=== PATIENT | female | born 1995 | race American Indian/Alaskan Native ===

== ENCOUNTER 2020-12-07 09:38 | Emergency (ER) | payer MEDICAID ==
[2020-12-07 10:34] VITALS: BP 126/69
--- NOTE | 2020-12-07 10:34 | Emergency Department Report ---
ED HPI - General Chief complaint: Vaginal Bleeding Stated complaint: /BLEEDING Time Seen by Provider: 12/07/20 10:32 Source: patient Mode of arrival: Ambulatory Limitations: No Limitations - History of Present Illness Initial comments: 25-year-old -[place] female patient presents with complaints of abdominal pain and vaginal spotting starting today. Patient states she had a positive test on Thursday. Her last menstrual cycle was 10/29/2020. She is G3, . No dysuria/hematuria, urinary frequency, vaginal dis charge/dyspareunia, or fever/chills/sweats per patient. She also denies any changes in her stools. Patient denies any other past medical history. He rates her current pain as a 7/10 in severity and describes it as cramping. - Related Data Allergies Allergy/AdvReac Type Severity Reaction Status Date / Time No Known Allergies Allergy Unverified 12/07/20 10:32 ED Review of Systems ROS: Stated complaint: /BLEEDING Other details as noted in HPI ED Past Medical Hx - Past Medical History Previous Medical History?: No - Surgical History Past Surgical History?: No - Social History Smoking Status: Current Every Day Smoker Substance Use Type: Alcohol ED Physical Exam - General Limitations: No Limitations ED Course Vital Signs 12/07/20 10:27 Temperature 99.1 F Pulse Rate 83 Respiratory 18 Rate Blood Pressure 126/69 O2 Sat by Pulse 100 Oximetry ED Medical Decision Making - Lab Data Result diagrams: 12/07/20 11:00 12/07/20 11:00 Lab Results 12/07/20 12/07/20 12/07/20 Range/Units 11:00 11:00 11:00 WBC 9.3 (4.5-11.0) K/mm3 RBC 4.41 (3.65-5.03) M/mm3 Hgb 13.8 (10.1-14.3) gm/dl Hct 40.8 (30.3-42.9) % MCV 93 (79-97) fl MCH 31 (28-32) pg MCHC 34 (30-34) % RDW 14.3 (13.2-15.2) % Plt Count 188 (140-440) K/mm3 Lymph % (Auto) 30.4 (13.4-35.0) % [place] % (Auto) 6.4 (0.0-7.3) % Eos % (Auto) 1.0 (0.0-4.3) % Baso % (Auto) 1.1 (0.0-1.8) % Lymph # (Auto) 2.8 (1.2-5.4) K/mm3 [place] # (Auto) 0.6 (0.0-0.8) K/mm3 Eos # (Auto) 0.1 (0.0-0.4) K/mm3 Baso # (Auto) 0.1 (0.0-0.1) K/mm3 Seg Neutrophils % 61.1 (40.0-70.0) % Seg Neutrophils # 5.7 (1.8-7.7) K/mm3 Sodium 140 (137-145) mmol/L Potassium 4.6 (3.6-5.0) mmol/L Chloride 104.6 (98-107) mmol/L Carbon Dioxide 24 (22-30) mmol/L Anion Gap 16 mmol/L BUN 7 (7-17) mg/dL Creatinine 0.5 L (0.6-1.2) mg/dL Estimated GFR > 60 ml/min BUN/Creatinine Ratio 14 % Glucose 84 (65-100) mg/dL Calcium 9.6 (8.4-10.2) mg/dL Total Bilirubin 0.50 (0.1-1.2) mg/dL AST 15 (5-40) units/L ALT 12 (7-56) units/L Alkaline Phosphatase 50 (35-129) units/L Total Protein 7.2 (6.3-8.2) g/dL Albumin 4.7 (3.9-5) g/dL Albumin/Globulin Ratio 1.9 % HCG, Quant 99.74 H (0-4) mIU/mL Urine Color (Yellow) Urine Turbidity (Clear) Urine pH (5.0-7.0) Ur Specific [place] (1.003-1.030) Urine Protein (Negative) mg/dL Urine Glucose (UA) (Negative) mg/dL Urine Ketones (Negative) mg/dL Urine Blood (Negative) Urine Nitrite (Negative) Urine Bilirubin (Negative) Urine Urobilinogen (<2.0) mg/dL Ur Leukocyte Esterase (Negative) Urine WBC (Auto) (0.0-6.0) /HPF Urine RBC (Auto) (0.0-6.0) /HPF U Epithel Cells (Auto) (0-13.0) /HPF Blood Type 12/07/20 12/07/20 Range/Units Unknown Unknown WBC (4.5-11.0) K/mm3 RBC (3.65-5.03) M/mm3 Hgb (10.1-14.3) gm/dl Hct (30.3-42.9) % MCV (79-97) fl MCH (28-32) pg MCHC (30-34) % RDW (13.2-15.2) % Plt Count (140-440) K/mm3 Lymph % (Auto) (13.4-35.0) % [place] % (Auto) (0.0-7.3) % Eos % (Auto) (0.0-4.3) % Baso % (Auto) (0.0-1.8) % Lymph # (Auto) (1.2-5.4) K/mm3 [place] # (Auto) (0.0-0.8) K/mm3 Eos # (Auto) (0.0-0.4) K/mm3 Baso # (Auto) (0.0-0.1) K/mm3 Seg Neutrophils % (40.0-70.0) % Seg Neutrophils # (1.8-7.7) K/mm3 Sodium (137-145) mmol/L Potassium (3.6-5.0) mmol/L Chloride (98-107) mmol/L Carbon Dioxide (22-30) mmol/L Anion Gap mmol/L BUN (7-17) mg/dL Creatinine (0.6-1.2) mg/dL Estimated GFR ml/min BUN/Creatinine Ratio % Glucose (65-100) mg/dL Calcium (8.4-10.2) mg/dL Total Bilirubin (0.1-1.2) mg/dL AST (5-40) units/L ALT (7-56) units/L Alkaline Phosphatase (35-129) units/L Total Protein (6.3-8.2) g/dL Albumin (3.9-5) g/dL Albumin/Globulin Ratio % HCG, Quant (0-4) mIU/mL Urine Color Yellow (Yellow) Urine Turbidity Clear (Clear) Urine pH 6.0 (5.0-7.0) Ur Specific [place] 1.011 (1.003-1.030) Urine Protein <15 mg/dl (Negative) mg/dL Urine Glucose (UA) Neg (Negative) mg/dL Urine Ketones Neg (Negative) mg/dL Urine Blood Neg (Negative) Urine Nitrite Neg (Negative) Urine Bilirubin Neg (Negative) Urine Urobilinogen < 2.0 (<2.0) mg/dL Ur Leukocyte Esterase Neg (Negative) Urine WBC (Auto) < 1.0 (0.0-6.0) /HPF Urine RBC (Auto) < 1.0 (0.0-6.0) /HPF U Epithel Cells (Auto) 2.0 (0-13.0) /HPF Blood Type AB POSITIVE - Radiology Data Radiology results: report reviewed FINDINGS: Uterus: Present. Size: 7.3 x 5.9 x 5.1 cm. Endometrial complex: Mildly prominent measuring 8 cm. No intrauterine . Mass lesions: None. Additional findings: None. Right Ovary -- Normal. Blood flow: Normal. Cyst or mass: None. Left Ovary-- abnormal. Blood flow: Normal. Cyst or mass: 2 cm solid/complex appearing lesion left ovary. Urinary Bladder: Normal. Free Fluid: Minimal at the cul-de-sac. Additional Findings: None. IMPRESSION: 1. Mildly thickened endometrium. No intrauterine . 2. Solid/complex appearing lesion with left ovary is likely a complex corpus luteum cyst. 3. Minimal free fluid at the cul-de-sac. - Medical Decision Making 25-year-old -[place] female patient presents with complaints of abdominal pain and vaginal spotting starting today. Patient states she had a positive test on Thursday. Her last menstrual cycle was 10/29/2020. She is G3, . No dysuria/hematuria, urinary frequency, vaginal discharge/dyspareunia, or fever/chills/sweats per patient. She also denies any changes in her stools. Patient denies any other past medical history. He rates her current pain as a 7/10 in severity and describes it as cramping. Beta-hCG noted to be 99. CBC and UA and CMP are without significant abnormalities. Ultrasound shows thickened endometrium and complex ovarian cyst. Early versus miscarriage. Patient informed to follow-up here in the ED in 2 to 3 days for repeat beta hCG level or with her [facility] first thing Thursday. Recommend Tylenol as needed for pain. Her vitals are normal, she is well-appearing, she is stable for discharge home. Strict return precautions were discussed in detail with patient who verbalizes understanding. Critical care attestation.: If time is entered above; I have spent that time in minutes in the direct care of this critically ill patient, excluding procedure time. ED Disposition Clinical Impression: Bleeding in early , Ovarian cyst Disposition: TO HOME OR SELFCARE Is pt being admited?: No Condition: Stable Instructions: Vaginal Bleeding During , Third Trimester, [id number], Ovarian Cyst Additional Instructions: Please follow-up with your [facility] first thing Thursday or return to the emergency department in 2 to 3 days for a beta hCG lab recheck Referrals: PRIMARY CARE [Primary Care Provider] - 3-5 Days
[2020-12-07 10:58] LABS: Bilirubin,Urine NEG (Negative); Blood,Urine NEG (Negative); Color,Urine Yellow (Yellow); Protein,Urine <15 mg/dL mg/dL (Negative); RBC,Urine < 1.0 /HPF (0.0-6.0); Urobilinogen,Urine < 2.0 mg/dL (<2.0); WBC,Urine < 1.0 /HPF (0.0-6.0)
[2020-12-07 11:38] LABS: Basophils # (Auto) 0.1 K/mm3 (0.0-0.1); Basophils % (Auto) 1.1 % (0.0-1.8); Eosinophils # (Auto) 0.1 K/mm3 (0.0-0.4); Hematocrit 40.8 % (30.3-42.9); Hemoglobin 13.8 gm/dl (10.1-14.3); Lymphocytes # (Auto) 2.8 K/mm3 (1.2-5.4); Lymphocytes % (Auto) 30.4 % (13.4-35.0); Mean Corpuscular HGB Conc 34 % (30-34); Mean Corpuscular Volume 93 fl (79-97); Monocytes # (Auto) 0.6 K/mm3 (0.0-0.8); Monocytes % (Auto) 6.4 % (0.0-7.3); Platelet Count 188 K/mm3 (140-440); Red Blood Count 4.41 M/mm3 (3.65-5.03); Red Cell Distribution Width 14.3 % (13.2-15.2)
[2020-12-07 11:46] LABS: Alanine Aminotransferase 12 units/L (7-56); Albumin 4.7 g/dL (3.9-5); Blood Urea Nitrogen 7 mg/dL (7-17); Calcium 9.6 mg/dL (8.4-10.2); Hemolysis Index 6
[2020-12-07 11:48] LABS: BUN/Creatinine Ratio 14
--- NOTE | 2020-12-07 12:50 | Ultrasound Report ---
ULTRASOUND PELVIS INDICATION: pain,bleeding, new . TECHNIQUE: Transabdominal. Transvaginal. Duplex Color Doppler used: Yes. COMPARISON: None available FINDINGS: Uterus: Present. Size: 7.3 x 5.9 x 5.1 cm. Endometrial complex: Mildly prominent measuring 8 cm. No intrauterine . Mass lesions: None. Additional findings: None. Right Ovary -- Normal. Blood flow: Normal. Cyst or mass: None. Left Ovary-- abnormal. Blood flow: Normal. Cyst or mass: 2 cm solid/complex appearing lesion left ovary. Urinary Bladder: Normal. Free Fluid: Minimal at the cul-de-sac. Additional Findings: None. IMPRESSION: 1. Mildly thickened endometrium. No intrauterine . 2. Solid/complex appearing lesion with left ovary is likely a complex corpus luteum cyst. 3. Minimal free fluid at the cul-de-sac. Signer Name: Miky Vega MD Signed: 12/07/2020 12:46 PM Workstation Name: [id number]
[2020-12-07] MEDS ORDERED: ACETAMINOPHEN 500 MG TAB PO STA (13:10)
== END 2020-12-07 14:00 | disposition home or self-care (01) ==
LOC: ED 09:38
DX: O20.8 Other hemorrhage in early pregnancy (principal); O34.81 Maternal care for other abnormalities of pelvic organs, first trimester; N83.209 Unspecified ovarian cyst, unspecified side; F17.200 Nicotine dependence, unspecified, uncomplicated; Z3A.00 Weeks of gestation of pregnancy not specified
CPT/HCPCS: 36415; 76801; 76817; 80053; 81001; 84702; 85025; 86900; 86901